=== PATIENT | male | born 1960 | race Caucasian/White ===

== ENCOUNTER 2016-12-29 21:29 | Emergency (ER) | payer OTHER ==
[2016-12-29 21:42] VITALS: BP 144/91; PULSE 102; TEMP 99.1; O2SAT 96
[2016-12-29 21:43] VITALS: RESP 20
[2016-12-29] MEDS ORDERED: Oxycodone/Acetaminophen 5/325 mg Tab PO STA (22:16)
[2016-12-29] MEDS ORDERED: Oxycodone/Acetaminophen 5/325 mg Tab ONE (22:23)
--- NOTE | 2016-12-29 22:35 | C.PDOC ---
History Of Present Illness 56 year old male who presents to the ER with a complaint of pain and swelling to the right knee for the past 3 days. Patient reports he has a Hx of chronic knee pain that has been increasing over the past few days. Patient was seen by PMD in office earlier today and had a knee x-ray, was given an unknown IM medication, prednisone PO, and was given Rx for NSAIDS, tramadol, and prednisone with no relief to pain. Denies fever or trauma, rash to knee, recent travel . Time Seen by Provider: 12/29/16 21:57 Chief Complaint (Nursing): Lower Extremity Problem/Injury History Per: Patient, Family (spouse) History/Exam Limitations: no limitations Onset/Duration Of Symptoms: Days (4) Current Symptoms Are (Timing): Still Present Severity: Moderate Pain Scale Rating Of: 8 Recent travel outside of the [place]: No - Knee Description Of Injury: Other (Chronic pain) Past Medical History Reviewed: Historical Data, Nursing Documentation, Vital Signs Vital Signs: Last Vital Signs Temp 99.1 F 12/29/16 21:42 Pulse 102 H 12/29/16 21:42 Resp 20 12/29/16 21:42 BP 144/91 H 12/29/16 21:42 Pulse Ox 96 12/30/16 01:53 - Medical History PMH: No Chronic Diseases Other PMH: Chronic knee pain Surgical History: No Surg Hx Family History: States: Unknown Family Hx - Social History Hx Alcohol Use: No Hx Substance Use: No - Immunization History Hx Tetanus Toxoid Vaccination: No Hx Influenza Vaccination: No Hx Pneumococcal Vaccination: No Review Of Systems Constitutional: Negative for: Fever, Chills Musculoskeletal: Positive for: Leg Pain Neurological: Negative for: Weakness, Numbness Physical Exam - Physical Exam Appears: Non-toxic Skin: Normal Color, Warm, Dry Head: Atraumatic, Normacephalic Oral Mucosa: Moist Extremity: No Calf Tenderness, No Deformity, Other (Swelling/tenderness to right anterior knee with minimal warmth. No streaking) Pulses: Left Dorsalis Pedis: Normal, Right Dorsalis Pedis: Normal Neurological/Psych: Oriented x3, Normal Speech, Normal Cognition, Normal Motor, Normal Sensation ED Course And Treatment O2 Sat by Pulse Oximetry: 96 (Room air) Pulse Ox Interpretation: Normal Progress Note: Pt already using 2 different NSAIDS and tramadol ( cautioned not to use 2 NSAIDs at the same time), Percocet PO ordered. Pt is requesting injection in his knee. Patient's right knee is swollen and tender with no erythema and warmth shows no indication for cellulitis or septic joint at this time. Patient advised to follow up with PMD for x-ray results and to follow up with ortho for possible knee aspiration; Pt is ambulatory with a limp due to pain, patient placed in a knee brace and crutches for support. Pt understands and agrees with plan and understands to return to ER if he has worsening fever, increasing swelling/ pain or redness. Disposition - Disposition Referrals: Joe Draper III, MD [Staff Provider] - Disposition: HOME/ ROUTINE Disposition Time: 22:34 Condition: STABLE Additional Instructions: Please follow up with Orthopedist Follow up with PMD for XR results Continue current pain meds Return to ER if fever, redness, moderate swelling or worse Instructions: Arthralgia (ED) Forms: Pacinian (Italian) Print Language: MAORI - Clinical Impression Clinical Impression: Arthralgia - Scribe Statement The provider has reviewed the documentation as recorded by the Scribcherry Morales All medical record entries made by the Scribe were at my direction and personally dictated by me. I have reviewed the chart and agree that the record accurately reflects my personal performance of the history, physical exam, medical decision making, and the department course for this patient. I have also personally directed, reviewed, and agree with the discharge instructions and disposition.
== END 2016-12-29 22:48 | disposition home or self-care (01) ==
LOC: C.ER 21:29
DX: M25.561 Pain in right knee (principal)